=== PATIENT | female | born 2000 ===

== ENCOUNTER 2024-04-26 15:23 | Emergency (ER) | payer OTHER ==
[2024-04-26 17:13] LABS: BASOPHILS PERCENT AUTO 0.2 % (0.0-1.0); EOSINOPHILS ABSOLUTE AUTO 0.2 K/mm3 (0.0-0.4); EOSINOPHILS PERCENT AUTO 1.6 % (0.0-6.0); HEMATOCRIT 46.8 % (37.0-47.0); HEMOGLOBIN 16.2 gm/dl (12.0-16.0); IMMATURE GRAN ABSOLUTE AUTO 0.03 K/mm3 (0.00-0.05); IMMATURE GRAN PERCENT AUTO 0.3 % (0.0-0.4); LYMPHOCYTES ABSOLUTE AUTO 1.8 K/mm3 (1.0-4.8); LYMPHOCYTES PERCENT AUTO 17.9 % (24.0-44.0); MEAN CORPUSCULAR HEMOGLOBIN 32.5 pg (28.0-32.0); MEAN CORPUSCULAR HGB CONC 34.6 g/dl (32.0-36.0); MEAN PLATELET VOLUME 9.2 fl (9.4-12.3); MONOCYTES ABSOLUTE AUTO 0.7 K/mm3 (0.0-0.8); MONOCYTES PERCENT AUTO 7.1 % (0.0-8.0); NEUTROPHILS ABSOLUTE AUTO 7.2 K/mm3 (1.8-7.7); NEUTROPHILS PERCENT AUTO 72.9 % (41.0-71.0); PLATELET COUNT,PLT 287 K/mm3 (150-400); RED BLOOD CELL COUNT 4.98 M/mm3 (4.10-5.30)
[2024-04-26] MEDS: Sodium Chloride 0.9% 1,000 ML IV ONE (17:34)
[2024-04-26 17:43] LABS: A/G RATIO 0.9 (1-2); ALANINE AMINOTRANSFERASE,ALT 40 U/L (14-59); ALBUMIN 3.8 g/dl (3.4-5.0); ALKALINE PHOSPHATASE 96 U/L (46-116); ANION GAP 11.6 (5-15); ASPARTATE AMNIOTRANSFERASE,AST 20 U/L (15-37); BILIRUBIN TOTAL 0.3 mg/dL (0.2-1.0); BLOOD UREA NITROGEN,BUN 10 mg/dL (7-18); BUN/CREATININE RATIO 12.5 (14-18); CALCIUM 9.1 mg/dL (8.5-10.1); CARBON DIOXIDE,CO2 29 mEq/L (21-32); CHLORIDE,CL 103 mEq/L (98-107); CREATININE 0.8 mg/dL (0.55-1.02); ESTIMATED GFR 107 mL/min (>60); GLUCOSE RANDOM 94 mg/dL (70-99); POTASSIUM,K 3.6 mEq/L (3.5-5.1); PROTEIN TOTAL,TP 8.2 g/dl (6.4-8.2); SODIUM,NA 140 mEq/L (136-145)
[2024-04-26] MEDS: Ketorolac 30 MG/ML SDV IVPUSH ONE (18:40)
[2024-04-26] MEDS: Benzonatate 100 MG Cap PO ONE (18:50)
== END 2024-04-26 19:54 | disposition home or self-care (01) ==
LOC: JD.ED 15:23
DX: J06.9 Acute upper respiratory infection, unspecified (principal)
CPT/HCPCS: 36415; 71045; 80053; 81025; 85025; 87428; 96361; 96374; 99285; A9270; J1885; J7030; 99283